=== PATIENT | male | born 1990 | race Two or more races ===

== ENCOUNTER 2017-10-17 21:00 | Emergency (ER) | payer OTHER ==
[2017-10-17] MEDS: PENICILLIN V POTASSIUM 500 MG TAB PO (21:45)
[2017-10-17] MEDS: IBUPROFEN 600 MG TAB PO (21:45)
== END 2017-10-17 22:08 | disposition home or self-care (01) ==
LOC: M ED 21:00
DX: K04.7 Periapical abscess without sinus (principal); K08.89 Other specified disorders of teeth and supporting structures
CPT/HCPCS: 99282